=== PATIENT | male | born 1950 | race Caucasian/White ===

== ENCOUNTER 2016-08-04 16:20 | Emergency (ER) | payer BC ==
[2016-08-04 16:47] VITALS: BP 127/73
--- NOTE | 2016-08-04 17:44 | UC ---
Hip/Pelvis Pain - HPI Summary HPI Summary: Fall on the ice one week ago, with ongoing pain in the pelvis and hip. Fall onto the greater trochanter, with persistent pain since then, mostly relieved with acetaminphen. Concerned due to extent of ecchymosis tracking to the lateral thigh. Presents today primarily for imaging, as he is concerned that he fractured his ischium. - History Of Current Complaint Chief Complaint: UCLowerExtremity Stated Complaint: HIP/LEFT LEG PAIN Time Seen by Provider: 08/04/16 17:32 Hx Obtained From: Patient Onset/Duration: Sudden Onset, Lasting Days - 7 Severity Initially: Moderate Severity Currently: Moderate Pain Intensity: 8 Pain Scale Used: 0-10 Numeric Location: Discrete At: - left ischium and greater trochanter Character Of Pain: Aching, Stiffness Aggravating Factor(s): Movement, Weight Bearing Alleviating Factor(s): Rest, OTC Medications Associated Signs And Symptoms: Positive: Bruising - Risk Factors Septic Arthritis Risk Factor: Negative - Allergies/Home Medications Allergies/Adverse Reactions: Allergies Allergy/AdvReac Type Severity Reaction Status Date / Time No Known Allergies Allergy Verified 08/04/16 16:47 Home Medications: Home Medications Ascorbic Acid TAB* [Vitamin C TAB*] 1,000 mg PO DAILY 08/04/16 [History Confirmed 08/04/16] Aspirin EC Low Dose* [Ecotrin EC Low Dose*] 81 mg PO DAILY 08/04/16 [History Confirmed 08/04/16] DULoxetine DR CAP* [Cymbalta CAP*] 120 mg PO DAILY 08/04/16 [History Confirmed 08/04/16] PMH/Surg Hx/FS Hx/Imm Hx Psychological History Of: Reports: Depression - treatmen of chronic depression with cymbalta - Surgical History Surgical History: Yes Surgery Procedure, Year, and Place: Neck disc fusion - Family History Known Family History: Positive: Other - nothing related to present complaint - Social History Occupation: Employed Full-time - retired from orthopedic surgeon, now teaching entrepreneurship at [employer] Lives: With Family Alcohol Use: Occasionally Substance Use Type: None Smoking Status (MU): Never Smoked Tobacco Review of Systems Constitutional: Negative Skin: Negative Eyes: Negative ENT: Negative Respiratory: Negative Cardiovascular: Negative Gastrointestinal: Negative Genitourinary: Negative Motor: Decreased ROM Neurovascular: Negative Musculoskeletal: Negative Neurological: Negative Psychological: Negative All Other Systems Reviewed And Are Negative: Yes Physical Exam Triage Information Reviewed: Yes Appearance: Pain Distress - mild to moderate., Obese Vital Signs: Initial Vital Signs Temp 97.9 F 08/04/16 16:42 Pulse 70 08/04/16 16:42 Resp 16 08/04/16 16:42 BP 127/73 08/04/16 16:42 Pulse Ox 98 08/04/16 16:42 ENT: Positive: Normal ENT inspection Musculoskeletal: Positive: Other: - declined range of motion Diagnostics - Laboratory Diagnostic Studies Completed/Ordered: xray--no fracture seen per , awaiting radiology read. Hip Injury Course/Dx - Course Course Of Treatment: continued rest and use of analgesics as needed. - Differential Dx/Diagnosis Provider Diagnoses: contusion left hip Discharge - Discharge Plan Condition: Stable Disposition: HOME Patient Education Materials: Contusion in Adults (ED) Referrals: Paramjit Grijalva MD [Primary Care Provider] - Additional Instructions: Continue acetaminophen as needed for control of pain, with follow up with Dr. Grijalva should you need some supportive physical therapy.
--- NOTE | 2016-08-04 18:30 | RAD ---
Indication: Left hip pain and pelvis. 2 views of the left hip and an AP view the pelvis demonstrates degenerative changes of the left hip. Pelvic ring is intact. No fracture is identified. IMPRESSION:: Degenerative changes of left hip. Pelvic ring is intact.
== END 2016-08-04 18:36 | disposition home or self-care (01) ==
LOC: UCCORT 16:20
DX: S70.02XA Contusion of left hip, initial encounter (principal); W00.0XXA Fall on same level due to ice and snow, initial encounter; Y93.9 Activity, unspecified; Y92.9 Unspecified place or not applicable
CPT/HCPCS: 99201; G0463